=== PATIENT | male | born 1985 | race Caucasian/White ===

== ENCOUNTER 2018-03-02 19:14 | Emergency (ER) | payer SELFPAY ==
[2018-03-02 19:36] VITALS: BP 128/74
[2018-03-02] MEDS ORDERED: HYDROcodone/ACETAMIN 5-325 MG* 1 TAB PO ONE ×2 (19:42→20:43)
--- NOTE | 2018-03-02 19:44 | UC ---
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 c/o pain and swelling. took 800mg motrin seating captain last tetanus is not known but thinks about 10 years ago. - History of Current Complaint Hx Obtained From: Patient Onset/Duration: Sudden Onset Severity Initially: Moderate Severity Currently: Severe Aggravating Factor(s): Standing, Ambulation Alleviating Factor(s): Rest Able to Bear Weight: No <Hannah Goddard - Last Filed: 03/02/18 19:29> <Emmanuel Krause - Last Filed: 03/02/18 21:12> - History of Current Complaint Stated Complaint: L FOOT/ANKLE INJURY Time Seen by Provider: 03/02/18 19:28 - Allergies/Home Medications Allergies/Adverse Reactions: Allergies Allergy/AdvReac Type Severity Reaction Status Date / Time No Known Allergies Allergy Verified 03/02/18 19:36 Home Medications: Home Medications NK [No Home Medications Reported] 03/02/18 [History Confirmed 03/02/18] PMH/Surg Hx/FS Hx/Imm Hx Previously Healthy: Yes - Family History Known Family History: Positive: None - Social History Occupation: Employed Full-time Lives: With Family Alcohol Use: Rare Substance Use Type: Marijuana - Immunization History Hx Tetanus, Diphtheria Vaccination: No Vaccination Up to Date: Yes <Hannah Goddard - Last Filed: 03/02/18 19:29> Review of Systems Constitutional: Negative Skin: Other - abrasion L lam Eyes: Negative ENT: Negative Respiratory: Negative Cardiovascular: Negative Gastrointestinal: Negative Genitourinary: Negative Motor: Negative Neurovascular: Negative Musculoskeletal: Other: - pain, swelling L ankle/foot Neurological: Negative Psychological: Negative Is Patient Immunocompromised?: No All Other Systems Reviewed And Are Negative: Yes <Hannah Goddard - Last Filed: 03/02/18 19:29> Physical Exam Triage Information Reviewed: Yes Appearance: Well-Appearing, Pain Distress Eyes: Positive: Conjunctiva Clear ENT: Positive: Normal ENT inspection Neck: Positive: Supple, Nontender, No Lymphadenopathy Respiratory: Positive: Lungs clear, Normal breath sounds Cardiovascular: Positive: RRR, No Murmur Abdomen Description: Positive: Nontender, No Organomegaly, Soft Bowel Sounds: Positive: Present Musculoskeletal: Positive: Other: - LLE: abrasion L lam. tender and swelling L anterior ankle/dorsal foot. toes have full s/v/m function. rest of extremity is atraumatic Neurological: Positive: Alert Psychological: Positive: Age Appropriate Behavior <RupeshHannah - Last Filed: 03/02/18 19:29> Vital Signs: Initial Vital Signs Temp 99.4 F 03/02/18 19:28 Pulse 110 03/02/18 19:28 Resp 17 03/02/18 19:28 BP 128/74 03/02/18 19:28 Pulse Ox 97 03/02/18 19:28 <Emmanuel Krause - Last Filed: 03/02/18 21:12> Procedures - Procedure Summary Procedure Summary: bulky webrill to foot/ankle. short posterior splint with fiberglass LLE. s/v/m to toes intact after. <RupeshHannah - Last Filed: 03/02/18 19:29> Diagnostics - Radiology No standard instances Xray Interpretation: Positive (See Comments) - IMPRESSION: NONDISPLACED FRACTURE OF THE BASE OF THE PLANTAR SURFACE OF THE CALCANEUS Radiology Interpretation Completed By: Radiologist <Emmanuel Kruase - Last Filed: 03/02/18 21:12> Lower Extremity Course/Dx - Course Course Of Treatment: calcaneal fx. no dislocation. no infection. - Differential Dx/Diagnosis Provider Diagnoses: Fracture left heel. Abrasion LLE. Contusion L ankle. contusion L foot <Goddard,Hannah - Last Filed: 03/02/18 19:29> Discharge - Sign-Out/Discharge Documenting (check all that apply): Discharge/Admit/Transfer - Billing Disposition and Condition Condition: STABLE Disposition: HOME <RupeshHannah - Last Filed: 03/02/18 19:29> - Billing Disposition and Condition Condition: STABLE Disposition: HOME <Emmanuel Krause - Last Filed: 03/02/18 21:12> - Discharge Plan Condition: Stable Disposition: HOME Patient Education Materials: Calcaneal Fracture (ED), Contusion in Adults (ED) , Splint Care (ED), Abrasion (ED) Forms: *Work Release Referrals: Eliot Alonzo MD [Medical Doctor] - 1 Day Additional Instructions: DO NOT PUT ANY WEIGHT ON THE LEFT FOOT/LEG Per institutional requirements, I have reviewed the chart, however, I was not consulted specifically or made aware of this patient by the above midlevel provider. I did not personally evaluate, interact, or disposition this patient.
--- NOTE | 2018-03-02 20:01 | RAD ---
HISTORY: Left foot injury and pain, left ankle injury and pain COMPARISONS: None VIEWS: 6, Frontal, lateral, and oblique views of the left foot and left ankle FINDINGS: BONE DENSITY: Normal. BONES: There is a nondisplaced fracture of the base of the plantar surface of the calcaneus. JOINTS: There is no arthropathy. ALIGNMENT: There is no dislocation. SOFT TISSUES: Unremarkable. OTHER FINDINGS: None. IMPRESSION: NONDISPLACED FRACTURE OF THE BASE OF THE PLANTAR SURFACE OF THE CALCANEUS
== END 2018-03-02 20:57 | disposition home or self-care (01) ==
LOC: UCCORT 19:14
DX: S92.002A Unspecified fracture of left calcaneus, initial encounter for closed fracture (principal); F12.90 Cannabis use, unspecified, uncomplicated; S90.02XA Contusion of left ankle, initial encounter; S90.32XA Contusion of left foot, initial encounter; S00.81XA Abrasion of other part of head, initial encounter; W22.8XXA Striking against or struck by other objects, initial encounter; Y92.9 Unspecified place or not applicable
CPT/HCPCS: 99203; G0463

== ENCOUNTER 2018-06-04 18:56 | Emergency (ER) | payer SELFPAY ==
[2018-06-04 19:42] VITALS: BP 122/62
--- NOTE | 2018-06-04 20:52 | UC ---
Dental HPI - HPI Summary HPI Summary: purulent drainage and swelling of left jaw due to dental abscess. Has had history of the same. Has not had any recent dental care but is set up with [facility]. - History of Current Complaint Chief Complaint: UCDentalProblem Stated Complaint: DENTAL COMPLAINT Time Seen by Provider: 06/04/18 20:48 Hx Obtained From: Patient Onset/Duration: Gradual Onset, Lasting Days Severity: Mild Pain Intensity: 0 Aggravating Factor(s): Heat, Cold, Chewing Alleviating Factor(s): OTC Meds Related History: Previous Dental Care on Same Tooth - Allergies/Home Medications Allergies/Adverse Reactions: Allergies Allergy/AdvReac Type Severity Reaction Status Date / Time No Known Allergies Allergy Verified 06/04/18 19:42 Home Medications: Home Medications [id number] Es (Nf) [Excedrin Extra Strength 250-250-65 mg (NF)] 2 tab PO Q6H PRN 06/04/18 [History Confirmed 06/04/18] PMH/Surg Hx/FS Hx/Imm Hx Previously Healthy: Yes - Surgical History Surgical History: Yes Surgery Procedure, Year, and Place: Herniorrhaphy as an - Family History Known Family History: Positive: None - parents alive and well, - Social History Occupation: Employed Full-time Alcohol Use: Occasionally Substance Use Type: Marijuana Substance Use Comment - Amount & Last Used: Daily Smoking Status (MU): Light Every Day Tobacco Smoker Type: Cigarettes Amount Used/How Often: 1/10 PPD Length of Time of Smoking/Using Tobacco: Since Age 17 - Immunization History Hx Tetanus, Diphtheria Vaccination: No Vaccination Up to Date: Yes Review of Systems Constitutional: Negative Skin: Negative Eyes: Negative ENT: Other - dental pain Respiratory: Negative Cardiovascular: Negative Gastrointestinal: Negative Genitourinary: Negative Motor: Negative Neurovascular: Negative Musculoskeletal: Negative Neurological: Negative Psychological: Negative Is Patient Immunocompromised?: No All Other Systems Reviewed And Are Negative: Yes Physical Exam Triage Information Reviewed: Yes Appearance: Well-Appearing, Pain Distress - mild to moderate. Vital Signs: Initial Vital Signs Temp 97.3 F 06/04/18 19:38 Pulse 94 06/04/18 19:38 Resp 16 06/04/18 19:38 BP 122/62 06/04/18 19:38 Pulse Ox 100 06/04/18 19:38 Eye Exam: Normal ENT: Positive: Pharynx normal, TMs normal, Other - left cheek with swelling along left jaw line without erythema. Dental: Positive: Gross Decay/Caries @ - 19/20, Dental Fracture @ Neck: Positive: Supple, Nontender, No Lymphadenopathy Respiratory: Positive: Lungs clear, Normal breath sounds Cardiovascular: Positive: RRR, No Murmur Dental Complaint Course/Dx - Course Course Of Treatment: dental abscess. - Differential Dx/Diagnosis Differential Diagnosis/Dx: Dental Abscess, Dental Caries, Fractured Tooth, Gingivitis Provider Diagnoses: dental abscess left lower dentition/#19 Discharge - Sign-Out/Discharge Documenting (check all that apply): Patient Departure All imaging exams completed and their final reports reviewed: No Studies - Discharge Plan Condition: Stable Disposition: HOME Prescriptions: Penicillin VK 500 MG TAB(NF) [Penicillin VK 500 mg Tab] 500 mg PO QID #28 tab Patient Education Materials: Dental Abscess (ED) Referrals: No Primary Care Phys,NOPCP [Primary Care Provider] - Additional Instructions: Continue penicillin 4 times daily for 7 days, ensuring that you see a dentist for management as soon as possible. You are planning to contact [facility]. Use excedrin as needed for relief of pain. - Billing Disposition and Condition Condition: STABLE Disposition: Home Images Dental: 1 - broken fractured teeth all molars. abscess buccal surface of 19 and 20
[2018-06-04] MEDS: Penicillin VK TAB* 250 MG PO ONE ×2 (21:18→21:19)
== END 2018-06-04 21:21 | disposition home or self-care (01) ==
LOC: UCCORT 18:56
DX: K04.7 Periapical abscess without sinus (principal); F17.210 Nicotine dependence, cigarettes, uncomplicated
CPT/HCPCS: 99212; A9270-GY; G0463

== ENCOUNTER 2019-02-28 09:07 | Emergency (ER) | payer SELFPAY ==
[2019-02-28 09:21] VITALS: BP 105/68
--- NOTE | 2019-02-28 09:38 | UC ---
Dental HPI - HPI Summary HPI Summary: Patient awakened this morning with some left-sided facial swelling which he attributes to a tooth he has no other symptoms of illness - History of Current Complaint Chief Complaint: UCGeneralIllness Stated Complaint: DENTAL COMPLAINT Time Seen by Provider: 02/28/19 09:27 Hx Obtained From: Patient Onset/Duration: Gradual Onset Severity: Mild Pain Intensity: 0 Aggravating Factor(s): Nothing Alleviating Factor(s): Nothing - Allergies/Home Medications Allergies/Adverse Reactions: Allergies Allergy/AdvReac Type Severity Reaction Status Date / Time No Known Allergies Allergy Verified 02/28/19 09:18 PMH/Surg Hx/FS Hx/Imm Hx Previously Healthy: Yes - Surgical History Surgical History: Yes Surgery Procedure, Year, and Place: Herniorrhaphy as an - Family History Known Family History: Positive: None - parents alive and well, - Social History Alcohol Use: None Substance Use Type: Marijuana Substance Use Comment - Amount & Last Used: OCCASIONALLY Smoking Status (MU): Former Smoker Type: Cigarettes Amount Used/How Often: 1/10 PPD Length of Time of Smoking/Using Tobacco: Since Age 17 - Immunization History Hx Tetanus, Diphtheria Vaccination: No Vaccination Up to Date: Yes Review of Systems All Other Systems Reviewed And Are Negative: Yes ENT: Positive: Other - Patient denies dental pain however he has several broken teeth and numerous caries. Is Patient Immunocompromised?: No Physical Exam Triage Information Reviewed: Yes Appearance: Well-Appearing, No Pain Distress, Well-Nourished Vital Signs: Initial Vital Signs Temp 99.1 F 02/28/19 09:18 Pulse 89 02/28/19 09:18 Resp 16 02/28/19 09:18 BP 105/68 02/28/19 09:18 Pulse Ox 100 02/28/19 09:18 Vital Signs Reviewed: Yes Eyes: Positive: Conjunctiva Clear ENT: Positive: Hearing grossly normal, Pharynx normal, TMs normal, Uvula midline Dental: Positive: Gross Decay/Caries @ - Patient has several teeth that have caries in them he also has the tooth of concern which is a left upper distal molar that is broken to the gumline. No evidence of abscess formation at this point time the gumline itself around the molar is mildly swollen. Neck: Positive: Supple, Nontender, No Lymphadenopathy Respiratory: Positive: Lungs clear, Normal breath sounds, No respiratory distress, No accessory muscle use Cardiovascular: Positive: RRR, No Murmur, Pulses Normal, Brisk Capillary Refill Musculoskeletal Exam: Normal Neurological Exam: Normal Psychological Exam: Normal Skin: Positive: Other - Patient has very minimal left sided facial swelling, nontender on palpation. Dental Complaint Course/Dx - Course Course Of Treatment: This 33-year-old male has several dental caries and a broken molar which is the area of concern. I'm starting him on an antibiotic at this point time he denies any pain however has mild left-sided facial swelling. He is to follow- up with the dentist in the next week or 2 for further care. - Differential Dx/Diagnosis Provider Diagnosis: Dental abscess, Dental caries Discharge - Sign-Out/Discharge Documenting (check all that apply): Patient Departure All imaging exams completed and their final reports reviewed: No Studies - Discharge Plan Condition: Fair Disposition: HOME Prescriptions: Amoxicillin/Clavulanate TAB* [Augmentin TAB 875*] 875 mg PO BID 10 Days #20 tab Ibuprofen TAB* [Motrin TAB* 600 MG] 600 mg PO Q8H PRN #21 tab PRN Reason: Pain Patient Education Materials: Dental Abscess (ED) Referrals: No Primary Care Phys,NOPCP [Primary Care Provider] - [facility] [Outside] Additional Instructions: May take Motrin every 8 hours with food as needed for pain and may alternate with Tylenol every 4 hours. May apply ice to the sore area. Definite follow- up with a dentist call on Friday to make an appointment. Take the Augmentin with food. - Billing Disposition and Condition Condition: FAIR Disposition: Home - Attestation Statements Provider Attestation: Per institutional requirements, I have reviewed the chart, however, I was not consulted specifically or made aware of this patient by the midlevel provider. I did not personally evaluate, interact with , or disposition this patient.
== END 2019-02-28 09:44 | disposition home or self-care (01) ==
LOC: UCCORT 09:07
DX: K04.7 Periapical abscess without sinus (principal); K02.9 Dental caries, unspecified; Z87.891 Personal history of nicotine dependence
CPT/HCPCS: 99212; G0463

== ENCOUNTER 2019-08-30 16:33 | Emergency (ER) | payer SELFPAY ==
[2019-08-30 17:06] VITALS: BP 106/70
--- NOTE | 2019-08-30 17:51 | UC ---
Dental HPI - HPI Summary HPI Summary: 34 y/o male presents to the urgent care c/o left naren upper jaw pain and swelling for the past 3 days. Pt reports he has 2 gross decay molars in his left upper gum which has been bothering him at times. He doesn't had a Dentist appt set up yet. Pain is 4/10 at touch and when he chews. He has not taken any medications to alleviate symptoms. He denies fever, trismus, PAEZ dizziness, chills, chest pain,abdominal pain, N/V/D. - History of Current Complaint Chief Complaint: UCDentalProblem Stated Complaint: DENTAL PAIN Time Seen by Provider: 08/30/19 17:49 Hx Obtained From: Patient Onset/Duration: Gradual Onset, Lasting Days - 3 days, Still Present, Worse Since - today w/ left side facial swelling Severity: Moderate Pain Intensity: 4 Pain Scale Used: 0-10 Numeric Aggravating Factor(s): Chewing Alleviating Factor(s): Nothing Related History: Swelling, Other - fracture molar in the left upper jaw - Allergies/Home Medications Allergies/Adverse Reactions: Allergies Allergy/AdvReac Type Severity Reaction Status Date / Time No Known Allergies Allergy Verified 08/30/19 17:02 PMH/Surg Hx/FS Hx/Imm Hx Previously Healthy: Yes - Pt denies PMHX - Surgical History Surgical History: Yes Surgery Procedure, Year, and Place: Herniorrhaphy as an infant - Family History Known Family History: Positive: None - parents alive and well, - Social History Occupation: Employed Full-time Lives: With Family Alcohol Use: None Substance Use Type: None Substance Use Comment - Amount & Last Used: OCCASIONALLY Smoking Status (MU): Light Every Day Tobacco Smoker Type: Cigarettes Amount Used/How Often: 3 cigs/day Length of Time of Smoking/Using Tobacco: Since Age 17 - Immunization History Hx Tetanus, Diphtheria Vaccination: No Vaccination Up to Date: Yes Review of Systems All Other Systems Reviewed And Are Negative: Yes Constitutional: Positive: Negative Skin: Positive: Negative Eyes: Positive: Negative ENT: Positive: Dental Pain - left upper jaw pain w/ facila swelling and gross decay in 2 molars Cardiovascular: Positive: Negative Gastrointestinal: Positive: Negative Genitourinary: Positive: Negative Motor: Positive: Negative Neurovascular: Positive: Negative Musculoskeletal: Positive: Negative Neurological: Positive: Negative Psychological: Positive: Negative Is Patient Immunocompromised?: No Physical Exam - Summary Physical Exam Summary: Vital Signs Reviewed: Yes General: Well-Appearing, Well-Nourished male sitting in the examining table w/o any respiratory or pain distress Eyes: Positive: Conjunctiva Clear - PERRLA, EOMI, ENT: Positive: Normal ENT inspection, Hearing grossly normal, Pharynx normal, TMs normal - B/L external ear canals clear,. Negative: Tonsillar swelling, Tonsillar exudate, Trismus Dental: Positive: Gross Decay/Caries on molars #13 and 14 w/ gingival swelling and erythema, tender to percussion. involves tissue surrounding theses molars, w / positive anterior Cervical Lymphadenopathy. Left cheek w/ mild swelling and tender to palpation. Neck: Positive: Supple Respiratory: Positive: Chest non-tender, Lungs clear, Normal breath sounds, No respiratory distress Cardiovascular: Positive: RRR, No Murmur, Pulses Normal, Brisk Capillary Refill Abdomen Description: Positive: Nontender, No Organomegaly, Soft. Negative: CVA Tenderness (R), CVA Tenderness (L) Bowel Sounds: Positive: Present Musculoskeletal: Positive: Strength Intact, ROM Intact, No Edema Neurological Exam: Normal Psychological Exam: Normal Skin Exam: Normal Triage Information Reviewed: Yes Vital Signs: Initial Vital Signs Temp 98.8 F 08/30/19 17:02 Pulse 78 08/30/19 17:02 Resp 19 08/30/19 17:02 BP 106/70 08/30/19 17:02 Pulse Ox 98 08/30/19 17:02 Dental Complaint Course/Dx - Course Course Of Treatment: 34 y/o male presents to the urgent care c/o left naren upper jaw pain and swelling for the past 3 days. Pt reports he has 2 gross decay molars in his left upper gum which has been bothering him at times. He doesn't had a Dentist appt set up yet. Pain is 4/10 at touch and when he chews. He has not taken any medications to alleviate symptoms. He denies fever, trismus, PAEZ dizziness, chills, chest pain,abdominal pain, N/V/D. Hx obtained. Pt with dental abscess around molar #13 and 14 w/ gross decay on examination. Pt educated in the importance to see a dentist for further management. Pt Rx Amoxicillin PO and Ibuprofen PO as directed below. Pt strongly advised to f/u with Dentist as soon as possible for further evaluation and treatment. D/C instructions explained. Pt understood and agreed with plan of care. - Differential Dx/Diagnosis Differential Diagnosis/Dx: Dental Abscess, Dental Caries, Fractured Tooth, Odontogenic Pain, Peridontic Disease, Peritonsillar Abcess Provider Diagnosis: Dental abscess, Fracture of tooth Discharge ED - Sign-Out/Discharge Documenting (check all that apply): Patient Departure - D/C home All imaging exams completed and their final reports reviewed: No Studies - Discharge Plan Condition: Stable Disposition: HOME Prescriptions: Amoxicillin PO (*) [Amoxicillin 500 MG CAP*] 500 mg PO TID #30 cap Ibuprofen TAB* [Motrin TAB* 600 MG] 600 mg PO Q6H PRN #30 tab PRN Reason: moderate pain Patient Education Materials: Dental Abscess (ED) Referrals: [facility] [place] [facility]ERR[facility] [Outside] - 2 Days Additional Instructions: 1-Please take full course of antibiotics to avoid resistance. Take yogurts w/ probiotics or Culturelle to protect your GI system. 2- Take Ibuprofen PO q6-8hrs prn as instructed after meals to alleviate pain and swelling. 3- F/u with your Dentist or Dental List provided as soon as possible for further treatment. 4- If symptoms worsen please despite taking antibiotics and you develop fever and severe pain please go immediately to the ER for further management. - Billing Disposition and Condition Condition: STABLE Disposition: Home
== END 2019-08-30 18:07 | disposition home or self-care (01) ==
LOC: UCCORT 16:33
DX: K04.7 Periapical abscess without sinus (principal); S02.5XXA Fracture of tooth (traumatic), initial encounter for closed fracture; F17.210 Nicotine dependence, cigarettes, uncomplicated; X58.XXXA Exposure to other specified factors, initial encounter; Y92.9 Unspecified place or not applicable
CPT/HCPCS: 99212; G0463